=== PATIENT | female | born 1990 | race Caucasian/White ===

== ENCOUNTER 2017-12-20 17:04 | Emergency (ER) | payer OTHER ==
[2017-12-20 18:30] VITALS: BP 111/79; PULSE 68; RESP 16; TEMP 98; O2SAT 99
== END 2017-12-20 18:54 | disposition home or self-care (01) | DRG 607 ==
LOC: ED 17:04
DX: R21 Rash and other nonspecific skin eruption (principal); L02.416 Cutaneous abscess of left lower limb
CPT/HCPCS: 99282